=== PATIENT | male | born 1985 | race Caucasian/White ===

== ENCOUNTER 2016-08-01 00:44 | Emergency (ER) | payer BC ==
[~2016-08-01] VITALS: Ht 177.8 cm; Wt 83.9 kg
[2016-08-01 01:00] VITALS: BP 117/72
--- NOTE | 2016-08-01 01:00 | NUR ---
PT STATES HE FELL DOWN 3 FLIGHTS OF STAIRS AND IS C/O OF LEFT ANKLE AND LEFT WRIST PAIN PT DENIES LOC. PT AOX4 RR EVEN AND UNLABORED. NO SOB NOTED. NAD NOTED. NO NVD AT THIS TIME. PT GOWNED AND PLACED ON MONITOR WAITING FOR MD DAVIS.
--- NOTE | 2016-08-01 01:11 | NUR ---
XRAY AT BEDSIDE
[2016-08-01] MEDS ORDERED: IBUPROFEN 400 MG TABLET PO ONE (01:30)
[2016-08-01] MEDS ORDERED: IBUPROFEN 400 MG TABLET ONE (01:35)
[2016-08-01] MEDS ORDERED: HYDROCODONE/APAP 5/325MG 1 EACH TABLET ONE (02:25)
[2016-08-01] MEDS ORDERED: HYDROCODONE/APAP 5/325MG 1 EACH TABLET PO ONE (02:30)
--- NOTE | 2016-08-01 02:50 | NUR ---
Patient discharged to home in stable condition. Written and verbal after care instructions given. Patient verbalizes understanding of instruction. ambulatory with a steady gait
== END 2016-08-01 03:02 | disposition home or self-care (01) ==
LOC: ER 00:50
DX: S93.402A Sprain of unspecified ligament of left ankle, initial encounter (principal); S63.502A Unspecified sprain of left wrist, initial encounter; I10 Essential (primary) hypertension; W10.9XXA Fall (on) (from) unspecified stairs and steps, initial encounter; Y93.89 Activity, other specified; Y92.89 Other specified places as the place of occurrence of the external cause; Y99.8 Other external cause status
CPT/HCPCS: 73110; 73610; 99284; A4606; Z7610